=== PATIENT | female | born 1935 | race Asian ===

== ENCOUNTER 2023-07-08 13:27 | Inpatient (IN) | payer MEDICARE, OTHER ==
[~2023-07-08] VITALS: Ht 165.1 cm; Wt 43.1 kg
[2023-07-08] MEDS ORDERED: ACETAMINOPHEN ES 500 MG TABLET ONE (13:59)
[2023-07-08] MEDS ORDERED: ACETAMINOPHEN ES 500 MG TABLET PO ONE (14:00)
[2023-07-08 14:36] LABS: EOSINOPHILS # (AUTO) 0.1 K/uL (0.0-0.7); EOSINOPHILS % (AUTO) 0.3 % (0.0-6.0); HEMATOCRIT 29 % (33-45); HEMOGLOBIN 9.6 g/dL (11.5-14.8); LYMPHOCYTES # (AUTO) 0.6 K/uL (0.8-4.8); LYMPHOCYTES % (AUTO) 1.7 % (20.0-44.0); MEAN CORPUSCULAR HEMOGLOBIN 32 PG (26.0-33.0); MEAN CORPUSCULAR HGB CONC 33 g/dl (31.0-36.0); MEAN CORPUSCULAR VOLUME 95 fL (82-100); MONOCYTES # (AUTO) 1.2 K/uL (0.1-1.30); MONOCYTES % (AUTO) 3.7 % (2.0-12.0); NEUTROPHILS # (AUTO) 30.8 K/uL (1.8-8.9); NEUTROPHILS % (AUTO) 94.3 % (43.0-81.0); PLATELET COUNT (AUTO) 232 K/uL (150-450); RED BLOOD CELL COUNT(AUTO) 3.04 MIL/uL (4.0-5.2); RED CELL DISTRIBUTION WIDTH 13.2 % (11.5-15.0)
[2023-07-08 14:45] LABS: WHITE BLOOD COUNT (AUTO) 32.6 K/uL (4.3-11.0)
[2023-07-08 14:50] LABS: CALCIUM, SERUM 9.4 mg/dL (8.5-10.1); CARBON DIOXIDE 32 mmol/L (21-32); CHLORIDE 87 mmol/L (98-107); GLUCOSE 103 mg/dL (74-106); POTASSIUM 4.4 mmol/L (3.5-5.1); SODIUM SERUM 125 mmol/L (136-145); UREA NITROGEN, BLOOD 16 mg/dL (7-18)
[2023-07-08 14:52] LABS: ALANINE AMINOTRANSFERASE 203 U/L (12-78); ALBUMIN 3.2 g/dL (3.4-5.0); ALKALINE PHOSPHATASE 108 U/L (46-116); ASPARTATE AMINOTRANSFERASE 109 U/L (15-37); BILIRUBIN,DIRECT 0.5 mg/dL (0.0-0.2); BILIRUBIN,TOTAL 1.1 mg/dL (0.2-1.0); LACTIC ACID 0.9 mmol/L (0.4-2.0); LIPASE 39 U/L (16-77); TOTAL PROTEIN, SERUM 7.2 g/dL (6.4-8.2)
[2023-07-08] MEDS ORDERED: IV NS 0.9% 500 ML BAG IV ONE (15:00)
[2023-07-08] MEDS ORDERED: PIPERACILLIN /TAZOBACTAM 3.375 G in IV D5W 50 ML IV ONE (15:00)
[2023-07-08] MEDS ORDERED: VANCOMYCIN 1 GM in IV D5W 250 ML IV ONE (15:00)
[2023-07-08 15:04] LABS: APPEARANCE,URINE CLOUDY (CLEAR); BILIRUBIN,URINE NEGATIVE (NEGATIVE); BLOOD, URINE 2+ Ery/uL (NEGATIVE); COLOR,URINE YELLOW (YELLOW); KETONES,URINE NEGATIVE (NEGATIVE); LEUKOCYTE ESTERASE ,URINE 3+ (NEGATIVE); NITRITE, URINE NEGATIVE (NEGATIVE); PROTEIN,URINE 1+ mg/dl (NEGATIVE); UGLUCOSE NEGATIVE (NEGATIVE); UROBILINOGEN,URINE 0.2 EU/dL (0.2)
[2023-07-08] MEDS ORDERED: PIPERACI/TAZO 3.375GM/D5W 50ML PB IV ONE (15:04)
[2023-07-08] MEDS ORDERED: VANCOMYCIN 1 GM /D5W 250 ML PB IV ONE (15:04)
[2023-07-08 15:23] LABS: ADD URINE CULTURE YES; BACTERIA,URINE 4+ /HPF (None Seen); SQUAMOUS EPITHELIAL CELL,UR None Seen /HPF (None Seen); WBC,URINE TOO NUMEROUS TO COUN /HPF (0-3)
[2023-07-08 15:24] LABS: MUCUS,URINE Many /LPF (None Seen)
[2023-07-08 15:33] LABS: ANISOCYTOSIS 1+; BAND % (MANUAL) 8 % (0.0-5.0); LYMPHOCYTES % (MANUAL) 1 % (16-48); MONOCYTES % (MANUAL) 4 % (0-11.0); NEUTROPHILS % (MANUAL) 87 (42-76); PLATELET ESTIMATE ADEQUATE
[2023-07-08] MEDS ORDERED: ASPI-1169 PO (15:45)
[2023-07-08] MEDS ORDERED: OMEP20CA15 PO (15:45)
[2023-07-08] MEDS ORDERED: ATOR40TA PO (15:45)
[2023-07-08] MEDS ORDERED: MAGN400T26 PO (15:45)
[2023-07-08] MEDS ORDERED: METO25TA6 PO (15:45)
[2023-07-08] MEDS ORDERED: ASCO-340 PO (15:45)
[2023-07-08] MEDS ORDERED: CALC500T53 PO (15:45)
[2023-07-08] MEDS ORDERED: FURO-145 PO (15:45)
[2023-07-08] MEDS ORDERED: [UNRECOGNIZED DRUG - CODE] PO (15:45)
[2023-07-08] MEDS ORDERED: APIX2.5T PO (15:45)
[2023-07-08] MEDS ORDERED: ZINC454O5 TP (15:45)
[2023-07-08] MEDS ORDERED: AMIO200T5 PO (15:45)
[2023-07-08] MEDS ORDERED: LACT1CAP73 PO (15:45)
[2023-07-08] MEDS ORDERED: MULT-213 PO (15:45)
[2023-07-08] MEDS ORDERED: NITR0.4T48 SL (15:45)
[2023-07-08] MEDS ORDERED: ACET-868 PO (15:45)
[2023-07-08] MEDS ORDERED: ONDANSETRON HCL/PF 4 MG/2 ML VIAL IVP PRN (16:30)
[2023-07-08] MEDS ORDERED: MORPHINE SULFATE INJ 2 MG/ML DISP.SYRIN IV PRN (16:30)
[2023-07-08] MEDS ORDERED: NITROGLYCERIN 0.4 MG/TAB BOTTLE SL PRN (16:30)
[2023-07-08] MEDS: METOPROLOL TARTRATE 25 MG TABLET PO SCH (17:00)
[2023-07-08] MEDS: CALCIUM CARBONATE (1250) 500 MG TABLET PO SCH (18:28)
[2023-07-08] MEDS: APIXABAN 2.5 MG TABLET PO SCH (18:29)
[2023-07-08] MEDS: IV NS 0.9% 1,000 ML IV PRN (18:31)
[2023-07-08 18:34] VITALS: BP 125/59; TEMP 98.4; O2SAT 98
[2023-07-08] MEDS: ACETAMINOPHEN 325 MG TABLET PO PRN (19:47)
[2023-07-08 20:00] VITALS: BP 94/43; TEMP 98.1; O2SAT 96
[2023-07-08] MEDS: CEFEPIME 1 GM in IV D5W 50 ML IV SCH (20:03)
[2023-07-08] MEDS: ATORVASTATIN 40 MG TABLET PO SCH (21:58)
[2023-07-08] MEDS ORDERED: MAGNESIUM OXIDE 400 MG TABLET PO SCH (22:00)
[2023-07-09] VITALS (7 sets, daily range): BP systolic 99–160; BP diastolic 45–55; TEMP 97.5–98.2; O2SAT 97–99
[2023-07-09 05:43] LABS: BASOPHILS % (AUTO) 0.1 % (0.0-2.0); HEMATOCRIT 23 % (33-45); HEMOGLOBIN 7.8 g/dL (11.5-14.8); LYMPHOCYTES # (AUTO) 0.6 K/uL (0.8-4.8); LYMPHOCYTES % (AUTO) 1.7 % (20.0-44.0); MEAN CORPUSCULAR HEMOGLOBIN 32 PG (26.0-33.0); MEAN CORPUSCULAR HGB CONC 34 g/dl (31.0-36.0); MEAN CORPUSCULAR VOLUME 96 fL (82-100); MONOCYTES # (AUTO) 1.4 K/uL (0.1-1.30); MONOCYTES % (AUTO) 3.8 % (2.0-12.0); NEUTROPHILS # (AUTO) 33.8 K/uL (1.8-8.9); NEUTROPHILS % (AUTO) 94.4 % (43.0-81.0); PLATELET COUNT (AUTO) 181 K/uL (150-450); RED BLOOD CELL COUNT(AUTO) 2.44 MIL/uL (4.0-5.2); RED CELL DISTRIBUTION WIDTH 12.9 % (11.5-15.0)
[2023-07-09 05:52] LABS: WHITE BLOOD COUNT (AUTO) 35.8 K/uL (4.3-11.0)
[2023-07-09 06:08] LABS: ALANINE AMINOTRANSFERASE 164 U/L (12-78); ALBUMIN 2.4 g/dL (3.4-5.0); ALKALINE PHOSPHATASE 90 U/L (46-116); ASPARTATE AMINOTRANSFERASE 115 U/L (15-37); BILIRUBIN,TOTAL 1.3 mg/dL (0.2-1.0); CALCIUM, SERUM 8.4 mg/dL (8.5-10.1); CARBON DIOXIDE 29 mmol/L (21-32); CHLORIDE 90 mmol/L (98-107); CREATININE 1.2 mg/dL (0.6-1.3); GLUCOSE 92 mg/dL (74-106); PHOSPHORUS 3.9 mg/dL (2.5-4.9); POTASSIUM 3.9 mmol/L (3.5-5.1); SODIUM SERUM 124 mmol/L (136-145); TOTAL PROTEIN, SERUM 5.7 g/dL (6.4-8.2); UREA NITROGEN, BLOOD 21 mg/dL (7-18)
[2023-07-09 06:40] LABS: MAGNESIUM 1.2 mg/dL (1.8-2.4)
[2023-07-09 07:09] LABS: LYMPHOCYTES % (MANUAL) 6 % (16-48); MONOCYTES % (MANUAL) 2 % (0-11.0); NEUTROPHILS % (MANUAL) 92 (42-76); PLATELET ESTIMATE ADEQUATE
[2023-07-09 07:11] LABS: ANISOCYTOSIS 1+
[2023-07-09] MEDS: ASPIRIN 81 MG TAB.CHEW PO SCH (08:32)
[2023-07-09] MEDS: CALCIUM CARBONATE (1250) 500 MG TABLET PO SCH ×2 (08:32→17:50)
[2023-07-09] MEDS: PANTOPRAZOLE 40 MG TABLET.DR PO SCH (08:32)
[2023-07-09] MEDS: APIXABAN 2.5 MG TABLET PO SCH ×2 (08:35→17:50)
[2023-07-09] MEDS: METOPROLOL TARTRATE 25 MG TABLET PO SCH ×2 (08:46→17:00)
[2023-07-09] MEDS: AMIODARONE HCL 200 MG TABLET PO SCH (08:47)
[2023-07-09] MEDS ORDERED: FUROSEMIDE 20 MG TABLET PO SCH (09:00)
[2023-07-09] MEDS: MAGNESIUM OXIDE 400 MG TABLET PO SCH ×2 (10:30→21:22)
[2023-07-09] MEDS: IV NS 0.9% 1,000 ML IV PRN (10:53)
[2023-07-09] MEDS: ACETAMINOPHEN 325 MG TABLET PO PRN ×2 (13:42→21:22)
[2023-07-09] MEDS: CEFEPIME 1 GM in IV D5W 50 ML IV SCH (19:55)
[2023-07-09] MEDS: ATORVASTATIN 40 MG TABLET PO SCH (21:22)
[2023-07-10] VITALS: BP 160/55; TEMP 97.9; O2SAT 97
[2023-07-10] MEDS: IV NS 0.9% 1,000 ML IV PRN (00:42)
[2023-07-10 04:00] VITALS: BP 161/63; TEMP 98; O2SAT 95
[2023-07-10 07:11] LABS: BASOPHILS % (AUTO) 0.1 % (0.0-2.0); EOSINOPHILS % (AUTO) 0.1 % (0.0-6.0); HEMATOCRIT 26 % (33-45); HEMOGLOBIN 8.7 g/dL (11.5-14.8); LYMPHOCYTES # (AUTO) 0.4 K/uL (0.8-4.8); LYMPHOCYTES % (AUTO) 2.1 % (20.0-44.0); MEAN CORPUSCULAR HEMOGLOBIN 32 PG (26.0-33.0); MEAN CORPUSCULAR HGB CONC 33 g/dl (31.0-36.0); MEAN CORPUSCULAR VOLUME 95 fL (82-100); MONOCYTES # (AUTO) 0.8 K/uL (0.1-1.30); MONOCYTES % (AUTO) 4.6 % (2.0-12.0); NEUTROPHILS % (AUTO) 93.1 % (43.0-81.0); PLATELET COUNT (AUTO) 187 K/uL (150-450); RED BLOOD CELL COUNT(AUTO) 2.73 MIL/uL (4.0-5.2); RED CELL DISTRIBUTION WIDTH 13.3 % (11.5-15.0); WHITE BLOOD COUNT (AUTO) 18.3 K/uL (4.3-11.0)
[2023-07-10 07:37] LABS: CALCIUM, SERUM 8.4 mg/dL (8.5-10.1); CREATININE 0.7 mg/dL (0.6-1.3); MAGNESIUM 1.7 mg/dL (1.8-2.4)
[2023-07-10] MEDS: PANTOPRAZOLE 40 MG TABLET.DR PO SCH (07:54)
[2023-07-10 08:00] VITALS: BP 176/64; TEMP 98.4; O2SAT 97
[2023-07-10 08:05] LABS: THYROID STIMULATING HORMONE 2.417 uIU/mL (0.358-3.74); URIC ACID 3.1 mg/dL (2.6-7.2)
[2023-07-10] MEDS ORDERED: Z GUARD REMEDY 4 OZ OINT TP PRN (08:30)
[2023-07-10] MEDS: ASPIRIN 81 MG TAB.CHEW PO SCH (09:15)
[2023-07-10] MEDS: AMIODARONE HCL 200 MG TABLET PO SCH (09:16)
[2023-07-10] MEDS: APIXABAN 2.5 MG TABLET PO SCH ×2 (09:17→17:37)
[2023-07-10] MEDS: METOPROLOL TARTRATE 25 MG TABLET PO SCH ×2 (09:17→17:35)
[2023-07-10] MEDS: CALCIUM CARBONATE (1250) 500 MG TABLET PO SCH ×2 (09:42→17:35)
[2023-07-10] MEDS: Z GUARD REMEDY 4 OZ OINT TP SCH (09:45)
[2023-07-10 12:00] VITALS: BP 162/65; TEMP 98.1; O2SAT 94
[2023-07-10] MEDS ORDERED: MAGNESIUM OXIDE 400 MG TABLET PO ONE (12:30)
[2023-07-10] MEDS: PROSOURCE / PROSTAT (PYXIS) 30 ML UDC PO SCH ×2 (13:04→17:36)
[2023-07-10 13:14] LABS: IRON, SERUM 16 ug/dl (50-175); TOTAL IRON BINDING CAPACITY 147 ug/dl (250-450)
[2023-07-10 13:26] LABS: FERRITIN 844 ng/mL (8-388)
[2023-07-10] MEDS ORDERED: NEUTRA PHOS 1 POWD.PACKET PO ONE (15:30)
[2023-07-10 16:00] VITALS: BP 182/82; TEMP 98.3; O2SAT 96
[2023-07-10] MEDS: hydrALAZINE HCL IV 20 MG VIAL IV PRN (16:21)
[2023-07-10] MEDS: FERROUS SULFATE (325 MG) 325 MG/TAB TABLET PO SCH (17:33)
[2023-07-10] MEDS: ENSURE ENLIVE CHOC 237 ML CAN PO SCH (17:33)
[2023-07-10] MEDS: CEFEPIME 1 GM in IV D5W 50 ML IV SCH (19:38)
[2023-07-10 20:00] VITALS: BP 158/69; TEMP 98.6; O2SAT 95
[2023-07-10] MEDS: ATORVASTATIN 40 MG TABLET PO SCH (21:22)
[2023-07-10] MEDS: MAGNESIUM OXIDE 400 MG TABLET PO SCH (21:22)
[2023-07-11] VITALS: BP 167/64; TEMP 97.9; O2SAT 94
[2023-07-11] MEDS: IV NS 0.9% 1,000 ML IV PRN (00:11)
[2023-07-11] MEDS: hydrALAZINE HCL IV 20 MG VIAL IV PRN ×2 (01:26→15:26)
[2023-07-11 04:00] VITALS: BP 112/60; TEMP 98.6
[2023-07-11 06:44] LABS: BASOPHILS % (AUTO) 0.2 % (0.0-2.0); EOSINOPHILS % (AUTO) 0.1 % (0.0-6.0); HEMATOCRIT 24 % (33-45); LYMPHOCYTES # (AUTO) 0.6 K/uL (0.8-4.8); LYMPHOCYTES % (AUTO) 5.3 % (20.0-44.0); MEAN CORPUSCULAR HEMOGLOBIN 32 PG (26.0-33.0); MEAN CORPUSCULAR HGB CONC 34 g/dl (31.0-36.0); MEAN CORPUSCULAR VOLUME 94 fL (82-100); MONOCYTES # (AUTO) 0.8 K/uL (0.1-1.30); MONOCYTES % (AUTO) 6.8 % (2.0-12.0); NEUTROPHILS # (AUTO) 10.5 K/uL (1.8-8.9); NEUTROPHILS % (AUTO) 87.6 % (43.0-81.0); PLATELET COUNT (AUTO) 198 K/uL (150-450); RED BLOOD CELL COUNT(AUTO) 2.51 MIL/uL (4.0-5.2); RED CELL DISTRIBUTION WIDTH 13.3 % (11.5-15.0)
[2023-07-11 07:10] LABS: MAGNESIUM 1.7 mg/dL (1.8-2.4); PHOSPHORUS 2.3 mg/dL (2.5-4.9)
[2023-07-11 08:00] VITALS: BP 143/60; TEMP 97.8; O2SAT 98
[2023-07-11] MEDS: CALCIUM CARBONATE (1250) 500 MG TABLET PO SCH (08:51)
[2023-07-11] MEDS: FERROUS SULFATE (325 MG) 325 MG/TAB TABLET PO SCH (08:51)
[2023-07-11] MEDS: PANTOPRAZOLE 40 MG TABLET.DR PO SCH (08:51)
[2023-07-11] MEDS: ASPIRIN 81 MG TAB.CHEW PO SCH (08:51)
[2023-07-11] MEDS: AMIODARONE HCL 200 MG TABLET PO SCH (08:52)
[2023-07-11] MEDS: METOPROLOL TARTRATE 25 MG TABLET PO SCH (08:52)
[2023-07-11] MEDS: APIXABAN 2.5 MG TABLET PO SCH (08:54)
[2023-07-11] MEDS: PROSOURCE / PROSTAT (PYXIS) 30 ML UDC PO SCH ×2 (08:57→13:31)
[2023-07-11] MEDS: Z GUARD REMEDY 4 OZ OINT TP SCH (08:58)
[2023-07-11] MEDS: ENSURE ENLIVE CHOC 237 ML CAN PO SCH (08:58)
[2023-07-11] MEDS ORDERED: MAGNESIUM OXIDE 400 MG TABLET PO ONE (10:00)
[2023-07-11] MEDS ORDERED: NEUTRA PHOS 1 POWD.PACKET PO ONE ×2 (11:00→16:00)
[2023-07-11] MEDS ORDERED: SULF1TAB48 PO (11:17)
[2023-07-11] MEDS ORDERED: FERR325T28 PO (11:17)
[2023-07-11 12:00] VITALS: BP 143/54; TEMP 97.9; O2SAT 96
[2023-07-11 15:26] VITALS: BP 165/80
== END 2023-07-11 15:45 | DRG 872 ==
LOC: ER 13:30 → TELE1 17:25
PROVIDERS: ADMIT Internal Medicine; ATTEND Internal Medicine
DX: A41.9 Sepsis, unspecified organism (principal); N39.0 Urinary tract infection, site not specified; E87.1 Hypo-osmolality and hyponatremia; E44.0 Moderate protein-calorie malnutrition; J90 Pleural effusion, not elsewhere classified; D64.9 Anemia, unspecified; E78.5 Hyperlipidemia, unspecified; E83.39 Other disorders of phosphorus metabolism; E83.42 Hypomagnesemia; E86.1 Hypovolemia; E88.09 Other disorders of plasma-protein metabolism, not elsewhere classified; I11.0 Hypertensive heart disease with heart failure; I48.91 Unspecified atrial fibrillation; J44.9 Chronic obstructive pulmonary disease, unspecified; B96.20 Unspecified Escherichia coli [E. coli] as the cause of diseases classified elsewhere; Z79.82 Long term (current) use of aspirin; Z79.01 Long term (current) use of anticoagulants; R65.20 Severe sepsis without septic shock; E80.6 Other disorders of bilirubin metabolism; Z20.822 Contact with and (suspected) exposure to COVID-19; K21.9 Gastro-esophageal reflux disease without esophagitis; L89.156 Pressure-induced deep tissue damage of sacral region; R74.01 Elevation of levels of liver transaminase levels; I50.9 Heart failure, unspecified
CPT/HCPCS: 36415; 71045-TC; 74018; 76705-TC; 80048-TC; 80053-TC; 80076-TC; 81001; 82728-TC; 83540-TC; 83605-TC; 83690-TC; 83735-TC; 83880; 84100-TC; 84443-TC; 84484-TC; 84550-TC; 85025-TC; 87040-TC; 87081-TC; 87086-TC; 87186-TC; 92526; 92611-TC; A4223; C9803; G0378; J0360; J0692; J2543; J3370; J3490; J7030; J7040; J7050; J7060